=== PATIENT | male | born 1990 | race Hispanic/Latino ===

== ENCOUNTER 2022-12-28 00:21 | Emergency (ER) | payer OTHER ==
[2022-12-28] MEDS ORDERED: Lidocaine 1% (PF) 30 ML VIAL ONE (00:35)
[2022-12-28] MEDS ORDERED: Boostrix 0.5 ML (Tdap) VIAL (>/=7 yrs of age) ONE (00:35)
[2022-12-28] MEDS ORDERED: Bacitracin 1 PK ONE (01:02)
== END 2022-12-28 01:13 ==
LOC: NAV ERS 00:21
DX: S01.21XA Laceration without foreign body of nose, initial encounter (principal); Z23 Encounter for immunization; W26.8XXA Contact with other sharp object(s), not elsewhere classified, initial encounter
CPT/HCPCS: 12011; 90471; 90715; J2001